=== PATIENT | female | born 1980 | race Caucasian/White ===

== ENCOUNTER 2017-10-19 15:24 | Emergency (ER) | payer OTHER ==
[2017-10-19 15:29] VITALS: BP 127/65; PULSE 92; RESP 16; TEMP 98.5
[2017-10-19] MEDS ORDERED: Acetaminophen-Codeine 300-30mg TAB PO STA (16:06)
[2017-10-19] MEDS ORDERED: CYCLOBENZAPRINE 10MG STARTER 3 TAB BTL PO STA (16:06)
--- NOTE | 2017-10-19 16:20 | ED ---
Fall HPI - General Chief Complaint: Fall Stated Complaint: fell down stairs Time Seen by Provider: 10/19/17 15:58 Source: patient, RN notes reviewed, old records reviewed Mode of arrival: ambulatory - History of Present Illness Initial Comments: this patient is a pleasant 37-year-old female chief complaint of lower tailbone. Patient reports that she was coming down the stairs from her loft. She states she slipped and fell on her buttocks down a few stairs. She complains of severe tailbone pain. She states this happened to her once before. Patient states that she has had no saddle anesthesias. Denies any numbness or tingling down the legs. She reports she did have a difficult time walking after this happened. 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 Patient denies any head injury or other injury related to the fall. - Related Data Home Medications Medication Instructions Recorded Confirmed Acetaminophen [Tylenol] 500 mg PO Q4-6H PRN 05/16/14 05/16/14 Pnv with Ca,No.72/Iron/FA 1 each PO DAILY 05/16/14 05/16/14 [ Plus Multivitamin Tab] Previous Rx's Medication Instructions Recorded Penicillin V Potassium [Pen Vee K] 500 mg PO QID #40 tab 05/16/14 Acetaminophen-Codeine 300-30mg 1 tab PO Q4H PRN 3 Days #12 tablet 10/19/17 [Tylenol w/codeine #3] Cyclobenzaprine [Flexeril] 10 mg PO TID #15 tab 10/19/17 Ibuprofen [Motrin] 600 mg PO Q6HR PRN #15 tab 10/19/17 Allergies Allergy/AdvReac Type Severity Reaction Status Date / Time No Known Allergies Allergy Verified 10/19/17 15:29 Review of Systems ROS Statement: Those systems with pertinent positive or pertinent negative responses have been documented in the HPI. ROS Other: All systems not noted in ROS Statement are negative. Past Medical History Past Medical History: No Reported History History of Any Multi-Drug Resistant Organisms: None Reported Past Surgical History: Orthopedic Surgery Past Psychological History: No Psychological Hx Reported Smoking Status: Never smoker Past Alcohol Use History: None Reported Past Drug Use History: None Reported General Exam - General Exam Comments Initial Comments: 37-year-old female. Alert and oriented. No acute distress. General: Well appearing, well nourished, in no distress. Oriented x 3, normal mood and affect . Ambulating without difficulty. Skin: Good turgor, no rash, unusual bruising or prominent lesions Hair: Normal texture and distribution. HEENT: Head: Normocephalic, atraumatic, no visible or palpable masses, depressions, or scaring. Neck: Supple, without lesions, non-tender Heart: No cardiomegaly or thrills; regular rate and rhythm, no murmur or gallop Lungs: Clear to auscultation and percussion Abdomen: Bowel sounds normal, no tenderness Back: patient has significant tenderness over the lumbar spine and coccyx and sacrum. No bruising noted. Patient is having a hard time laying down flat due to the pain. Extremities: No amputations or deformities, cyanosis, edema or varicosities, peripheral pulses intact Musculoskeletal: Normal gait and station. No misalignment, asymmetry, crepitation, defects, tenderness, masses, effusions, decreased range of motion, instability, atrophy or abnormal strength or tone in the head, neck, spine, ribs , pelvis or extremities. Neurologic: CN 2-12 normal. Sensation to pain, touch, and proprioception normal. DTRs normal in upper and lower extremities. No pathologic reflexes. Psychiatric: Oriented X3, intact recent and remote memory, judgment and insight , normal mood and affect. Limitations: no limitations Course Vital Signs 10/19/17 10/19/17 15:26 17:26 Temperature 98.5 F 98.5 F Pulse Rate 92 92 Respiratory 16 16 Rate Blood Pressure 127/65 127/65 O2 Sat by Pulse 99 99 Oximetry Medical Decision Making - Medical Decision Making physical 37 showed [employer] chief complaint of tailbone pain after falling down the stairs. She has no bruising noted but significant tenderness palpation over the lower spine. X-rays were obtained. There is no evidence of any acute fractures or dislocation. Patient did exhibit significant pain to palpation. Was given pain medication while emergency department. She does feel somewhat better. At this time is that she may need to purchase a donut pillow to take off the pressure from her tailbone. Discussed that she should rest, apply ice and later heat. Patient understands treatment plan will comply. Return parameters were discussed. 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 No vertebral compression or malalignment. No displaced or angulated tailbone fracture. Disposition Clinical Impression: Fall, Lumbar back pain, Coccyx pain Disposition: HOME SELF-CARE Condition: Good Instructions: Coccyx Injury (ED) Additional Instructions: Patient has follow-up with primary care provider. Recommended using a donut pillow to relieve pressure from the tailbone. Return to the emergency department if any alarming signs or symptoms occur. Prescriptions: Acetaminophen-Codeine 300-30mg [Tylenol w/codeine #3] 1 tab PO Q4H PRN 3 Days # 12 tablet PRN Reason: Pain Cyclobenzaprine [Flexeril] 10 mg PO TID #15 tab Ibuprofen [Motrin] 600 mg PO Q6HR PRN #15 tab PRN Reason: Pain Is patient prescribed a controlled substance at d/c from ED?: No If prescribed controlled substance>3 days was MAPS reviewed?: No When asked, does pt state using other controlled substances?: No Referrals: None,Stated [Primary Care Provider] - 1-2 days Pia Alan MD [STAFF PHYSICIAN] - 1-2 days Time of Disposition: 16:57
--- NOTE | 2017-10-19 16:51 | XR ---
EXAMINATION TYPE: XR lumbar spine 2 or 3V, XR sacrum coccyx 3 views DATE OF EXAM: 10/19/2017 COMPARISON: NONE HISTORY: 37-year-old female low back pain after fall downstairs FINDINGS: Lumbar spine: 5 lumbar type vertebral bodies. There is a limbus vertebra of L4. Vertebral body heights are preserve d and alignment is maintained. Sacrum and coccyx: SI joints appear symmetric and intact though there is some subarticular sclerosis noted on both sides . Smooth delineation to the arcuate lines of the sacrum. No displaced or angulated sacral or coccygea l fracture seen. IMPRESSION: 1. 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 No vertebral compression collapse or malalignment. 2. Sacrum and coccyx: No displaced or angulated tailbone fracture.
== END 2017-10-19 17:21 | disposition home or self-care (01) ==
LOC: EC 15:24
DX: M54.5 Low back pain (principal); W10.9XXA Fall (on) (from) unspecified stairs and steps, initial encounter
CPT/HCPCS: 72100; 72220; 99284

== ENCOUNTER 2020-02-24 16:03 | Emergency (ER) | payer OTHER ==
[2020-02-24 16:08] VITALS: RESP 18
[2020-02-24] MEDS ORDERED: LORazepam 2 MG/ML INJ IV STA (16:27)
[2020-02-24] MEDS ORDERED: ONDANSETRON 4 MG/2 ML VIAL IVP STA (16:27)
[2020-02-24] MEDS ORDERED: KETOROLAC 15 MG/ML 1 ML VIAL IVP STA (16:27)
[2020-02-24] MEDS ORDERED: diphenhydrAMINE 50 MG/ML 1 ML VIAL IVP STA (16:27)
[2020-02-24] MEDS ORDERED: SODIUM CHLORIDE 0.9% 1,000 ML IV STA (16:27)
--- NOTE | 2020-02-24 16:30 | ED ---
General Adult HPI - General Chief complaint: Syncope Stated complaint: Near Syncope, Headache, Numb Fingers Time Seen by Provider: 02/24/20 16:13 Source: patient Mode of arrival: ambulatory Limitations: no limitations - History of Present Illness Initial comments: Dictation was produced using [employer] dictation software. please excuse any grammatical, word or spelling errors. This patient was cared for during a federal and state declared state of emergency secondary to Covid 19 Chief Complaint: 39-year-old female with past medical history of appendectomy presents with lightheadedness, headache and extremity paresthesias. History of Present Illness: 39-year-old female she presents today with headache. Patient has history of tension headaches. She states her headaches are similar to her usual headaches patient usually sees a chiropractor and her symptoms always end up improving. Patient states for the last couple days she's been having lightheadedness. She has been feeling anxious. She has a history of anxiety. Patient has had Xanax several months ago. She's been feeling, stress recently. Patient states that he tried marijuana gun he is several days ago and felt very ill from it. She states that today her symptoms remind her of when she took marijuana Shane. The ROS documented in this emergency department record has been reviewed and confirmed by me. Those systems with pertinent positive or negative responses have been documented in the HPI. All other systems are other negative and/or noncontributory. PHYSICAL EXAM: General Impression: Alert and oriented x3, not in acute distress, tremors HEENT: Normocephalic atraumatic, extra-ocular movements intact, pupils equal and reactive to light bilaterally, mucous membranes moist. Cardiovascular: Heart regular rate and rhythm Chest: Able to complete full sentences, no retractions, no tachypnea Abdomen: abdomen soft, non-tender, non-distended, no organomegaly Musculoskeletal: Pulses present and equal in all extremities, no peripheral edema Motor: no focal deficits noted Neurological: CN II-XII grossly intact, no focal motor or sensory deficits noted Skin: Intact with no visualized rashes Psych: Normal affect and mood ED course: 31-year-old female presents with headache, lightheadedness and presyncope signs upon arrival are within acceptable limits. Laboratory evaluation obtained. CBC, metabolic panel and urine hCG is obtained. There is slight gap acidosis. Patient states she has not been eating very well recently. This is likely secondary to some mild starvation acidosis. Patient otherwise appears well and feels much better after anxiolytics and headache down fluids. She is advised to follow-up with primary care physician. Patient clear for discharge. EKG interpretation: Ventricular rate 80, normal sinus rhythm,. Interval 150, QRS 94, QTc 442. No NM prolongation, no QTC prolongation, no ST or T-wave changes noted. Overall, this EKG is unremarkable - Related Data Home Medications Medication Instructions Recorded Confirmed Acetaminophen [Tylenol] 500 mg PO Q4-6H PRN 05/16/14 05/16/14 Pnv with Ca,No.72/Iron/FA 1 each PO DAILY 05/16/14 05/16/14 [ Plus Multivitamin Tab] Previous Rx's Medication Instructions Recorded Penicillin V Potassium [Pen Vee K] 500 mg PO QID #40 tab 05/16/14 Acetaminophen-Codeine 300-30mg 1 tab PO Q4H PRN 3 Days #12 tablet 10/19/17 [Tylenol w/codeine #3] Cyclobenzaprine [Flexeril] 10 mg PO TID #15 tab 10/19/17 Ibuprofen [Motrin] 600 mg PO Q6HR PRN #15 tab 10/19/17 Allergies Allergy/AdvReac Type Severity Reaction Status Date / Time No Known Allergies Allergy Verified 02/24/20 16:08 Review of Systems ROS Statement: Those systems with pertinent positive or pertinent negative responses have been documented in the HPI. ROS Other: All systems not noted in ROS Statement are negative. Past Medical History Past Medical History: No Reported History History of Any Multi-Drug Resistant Organisms: None Reported Past Surgical History: Appendectomy, Orthopedic Surgery Past Psychological History: No Psychological Hx Reported Smoking Status: Never smoker Past Alcohol Use History: Occasional Past Drug Use History: None Reported General Exam Limitations: no limitations Course Vital Signs 02/24/20 16:05 Temperature 98.5 F Pulse Rate 84 Respiratory 18 Rate Blood Pressure 130/67 O2 Sat by Pulse 98 Oximetry Medical Decision Making - Lab Data Result diagrams: 02/24/20 16:37 02/24/20 16:37 Lab Results 02/24/20 02/24/20 02/24/20 Range/Units 16:37 16:37 16:37 WBC 9.4 (3.8-10.6) k/uL RBC 5.06 (3.80-5.40) m/uL Hgb 14.3 (11.4-16.0) gm/dL Hct 44.2 (34.0-46.0) % MCV 87.3 (80.0-100.0) fL MCH 28.2 (25.0-35.0) pg MCHC 32.3 (31.0-37.0) g/dL RDW 12.1 (11.5-15.5) % Plt Count 332 (150-450) k/uL Neutrophils % 68 % Lymphocytes % 25 % Monocytes % 3 % Eosinophils % 2 % Basophils % 0 % Neutrophils # 6.4 (1.3-7.7) k/uL Lymphocytes # 2.4 (1.0-4.8) k/uL Monocytes # 0.3 (0-1.0) k/uL Eosinophils # 0.2 (0-0.7) k/uL Basophils # 0.0 (0-0.2) k/uL Sodium 138 (137-145) mmol/L Potassium 3.7 (3.5-5.1) mmol/L Chloride 106 (98-107) mmol/L Carbon Dioxide 19 L (22-30) mmol/L Anion Gap 13 mmol/L BUN 15 (7-17) mg/dL Creatinine 0.78 (0.52-1.04) mg/dL Est GFR (CKD-EPI)AfAm >90 (>60 ml/min/1.73 sqM) Est GFR (CKD-EPI)NonAf >90 (>60 ml/min/1.73 sqM) Glucose 100 H (74-99) mg/dL Calcium 9.8 (8.4-10.2) mg/dL Urine HCG, Qual Not Detected (Not Detectd) Disposition Clinical Impression: Pre-syncope Disposition: HOME SELF-CARE Condition: Good Instructions (If sedation given, give patient instructions): Near Syncope (ED) Is patient prescribed a controlled substance at d/c from ED?: No Referrals: None,Stated [Primary Care Provider] - 1-2 days Time of Disposition: 17:41
[2020-02-24 16:55] LABS: Basophils % (A) 0 %; Eosinophils # (A) 0.2 k/uL (0-0.7); Eosinophils % (A) 2 %; HCT 44.2 % (34.0-46.0); HGB 14.3 gm/dL (11.4-16.0); Lymphocytes # (A) 2.4 k/uL (1.0-4.8); Lymphocytes % (A) 25 %; MCH 28.2 pg (25.0-35.0); MCHC 32.3 g/dL (31.0-37.0); MCV 87.3 fL (80.0-100.0); Mean Platelet Volume 7.1; Monocytes # (A) 0.3 k/uL (0-1.0); Monocytes % (A) 3 %; Neutrophils # (A) 6.4 k/uL (1.3-7.7); Neutrophils % (A) 68 %; Platelet Count 332 k/uL (150-450); RBC 5.06 m/uL (3.80-5.40); RDW 12.1 % (11.5-15.5); WBC 9.4 k/uL (3.8-10.6)
[2020-02-24 17:05] LABS: African American GFR (CKD) >90 (>60 ml/min/1.73 sqM); Anion Gap 13 mmol/L; Blood Urea Nitrogen 15 mg/dL (7-17); Calcium 9.8 mg/dL (8.4-10.2); Carbon Dioxide 19 mmol/L (22-30); Chloride 106 mmol/L (98-107); Glucose 100 mg/dL (74-99); Non-African American GFR(CKD) >90 (>60 ml/min/1.73 sqM); Potassium 3.7 mmol/L (3.5-5.1); Sodium 138 mmol/L (137-145)
[2020-02-24 18:40] VITALS: BP 97/51; PULSE 88; TEMP 96.7
== END 2020-02-24 18:42 | disposition home or self-care (01) ==
LOC: EC 16:03
DX: R42 Dizziness and giddiness (principal); R51 Headache; R20.2 Paresthesia of skin
CPT/HCPCS: 36415; 93005; 80048; 85025; 81025; 99284; 96374; 96375 ×3; 96361; J2060; J1200; J2405; J1885

== ENCOUNTER 2020-05-14 10:15 | Emergency (ER) | payer OTHER ==
[2020-05-14 10:21] VITALS: RESP 18
[2020-05-14] MEDS ORDERED: SODIUM CHLORIDE 0.9% 1,000 ML IV STA ×2 (11:01)
--- NOTE | 2020-05-14 11:06 | ED ---
Chest Pain HPI - General Chief Complaint: Chest Pain Stated Complaint: Female /Chest pain Time Seen by Provider: 05/14/20 10:31 Source: patient, RN notes reviewed, old records reviewed Mode of arrival: ambulatory Limitations: no limitations - History of Present Illness Initial Comments: 39-year-old female presents today for CC of chest pain and heaviness. Patient has had palpitations starting this morning. She reports that early in the morning she woke up to the bathroom and had severe vaginal bleeding with clots. She reports that she's on her menstrual cycle and she does have some nasal heavy periods but never this bad. Patient states that she also has a history of anxiety. She reports the palpitations and numbness and tingling down her arms that she thought to be related to anxiety versus take her medication of magnesium to help with his prior to arrival. She states that she has no chance of . She denies any other complaints - Related Data Home Medications Medication Instructions Recorded Confirmed Iron 18 mg PO DAILY PRN 05/14/20 05/14/20 Magnesium Oxide [Mag-Ox] 250 mg PO DAILY 05/14/20 05/14/20 Multivitamins, Thera [Multivitamin 1 tab PO DAILY 05/14/20 05/14/20 (formulary)] Allergies Allergy/AdvReac Type Severity Reaction Status Date / Time No Known Allergies Allergy Verified 05/14/20 11:43 Review of Systems ROS Statement: Those systems with pertinent positive or pertinent negative responses have been documented in the HPI. ROS Other: All systems not noted in ROS Statement are negative. EKG Findings - EKG Comments: EKG Findings:: EKG performed at 1041 shows normal sinus rhythm with sinus arrhythmia. Normal EKG. Ventricular rate of 77 bpm. Was 162 ms. QRS ration is 90 ms. QT QTc is 3-4/434 ms. Past Medical History Past Medical History: No Reported History History of Any Multi-Drug Resistant Organisms: None Reported Past Surgical History: Appendectomy, Orthopedic Surgery Past Psychological History: No Psychological Hx Reported Smoking Status: Never smoker Past Alcohol Use History: Occasional Past Drug Use History: None Reported General Exam - General Exam Comments Initial Comments: 39-year-old female. Alert and oriented. No distress. Limitations: no limitations General appearance: alert, in no apparent distress Head exam: Present: atraumatic, normocephalic, normal inspection Eye exam: Present: normal appearance ENT exam: Present: normal exam, mucous membranes moist Neck exam: Present: normal inspection. Absent: tenderness, meningismus, lymphadenopathy Respiratory exam: Present: normal lung sounds bilaterally. Absent: respiratory distress, wheezes, rales, rhonchi, stridor Cardiovascular Exam: Present: regular rate, normal rhythm, normal heart sounds. Absent: systolic murmur, diastolic murmur, rubs, gallop, clicks GI/Abdominal exam: Present: soft, normal bowel sounds. Absent: distended, tenderness, guarding, rebound, rigid Extremities exam: Present: normal inspection, full ROM, normal capillary refill. Absent: tenderness, pedal edema, joint swelling, calf tenderness Back exam: Present: normal inspection Neurological exam: Present: alert, oriented X3, CN II-XII intact Psychiatric exam: Present: normal affect, normal mood Skin exam: Present: warm, dry, intact, normal color. Absent: rash Course Vital Signs 05/14/20 05/14/20 05/14/20 10:18 10:40 11:30 Temperature 98.4 F Pulse Rate 84 81 75 Respiratory 18 18 Rate Blood Pressure 126/79 104/71 O2 Sat by Pulse 100 98 98 Oximetry 05/14/20 13:02 Temperature 97.7 F Pulse Rate 74 Respiratory 18 Rate Blood Pressure 98/62 O2 Sat by Pulse 99 Oximetry Chest Pain MDM - MDM 39-year-old female presents today with concerns for palpitations and anxiety. She reports that she felt lightheaded and symptoms started after she had some heavy vaginal bleeding today. She reports that sounds diminished. She denies any abdominal pain or tenderness. Return to emergency department she denied any chest pain. Patient's related to anxiety attacks. Patient is agreeing on reevaluation. Patient was given IV fluids and had a cardiac workup including a negative d-dimer and troponin. She is reevaluated states she is feeling somewhat improved besides anxiety. She states stable for discharge home and follow-up with PCP in regards to ambulate medications. Disposition Clinical Impression: Heavy menstrual bleeding, Anxiety, Atypical chest pain Disposition: HOME SELF-CARE Condition: Good Instructions (If sedation given, give patient instructions): Chest Pain (ED) Additional Instructions: Please follow up with family doctor if symptoms have not improved over the next two days. Please return to the emergency room if your symptoms increase or worsen or for any other concerns. Is patient prescribed a controlled substance at d/c from ED?: No Referrals: None,Stated [Primary Care Provider] - 1-2 days Amber Palumbo MD [REFERRING] - 1-2 days Time of Disposition: 13:03
[2020-05-14 11:18] LABS: Basophils % (A) 0 %; Eosinophils # (A) 0.1 k/uL (0-0.7); Eosinophils % (A) 1 %; HCT 48.1 % (34.0-46.0); HGB 15.5 gm/dL (11.4-16.0); Lymphocytes # (A) 1.2 k/uL (1.0-4.8); Lymphocytes % (A) 16 %; MCH 28.2 pg (25.0-35.0); MCHC 32.3 g/dL (31.0-37.0); MCV 87.5 fL (80.0-100.0); Mean Platelet Volume 7.5; Monocytes # (A) 0.2 k/uL (0-1.0); Monocytes % (A) 3 %; Neutrophils # (A) 6.1 k/uL (1.3-7.7); Neutrophils % (A) 79 %; Platelet Count 329 k/uL (150-450); RDW 12.6 % (11.5-15.5); WBC 7.7 k/uL (3.8-10.6)
[2020-05-14 11:35] LABS: Appearance,Urine Clear (Clear); Bilirubin,Urine Negative (Negative); Blood,Urine Large (Negative); Color,Urine Colorless; Glucose,Urine (UA) Negative (Negative); Ketones,Urine Negative (Negative); Leukocyte Esterase,Urine Negative (Negative); Nitrite,Urine Negative (Negative); Protein,Urine Negative (Negative); RBC,Urine 2 /hpf (0-5); Specific Gravity,Urine 1.002 (1.001-1.035); Squamous Epithelial Cell,Urine 1 /hpf (0-4); Urobilinogen,Urine <2.0 mg/dL (<2.0); WBC,Urine 1 /hpf (0-5)
[2020-05-14 11:45] LABS: ALT 18 U/L (4-34); AST 23 U/L (14-36); African American GFR (CKD) >90 (>60 ml/min/1.73 sqM); Albumin 4.3 g/dL (3.5-5.0); Alkaline Phosphatase 66 U/L (38-126); Anion Gap 7 mmol/L; Blood Urea Nitrogen 12 mg/dL (7-17); Calcium 9.5 mg/dL (8.4-10.2); Carbon Dioxide 21 mmol/L (22-30); Chloride 112 mmol/L (98-107); Glucose 99 mg/dL (74-99); Lipase 106 U/L (23-300); Magnesium 2.2 mg/dL (1.6-2.3); Non-African American GFR(CKD) >90 (>60 ml/min/1.73 sqM); Sodium 140 mmol/L (137-145); Total Bilirubin 0.5 mg/dL (0.2-1.3); Total Protein 7.5 g/dL (6.3-8.2)
[2020-05-14 11:51] LABS: INR 0.9 (<1.2); Partial Thromboplastin Time 23.8 sec (22.0-30.0); Prothrombin Time 9.8 sec (9.0-12.0)
--- NOTE | 2020-05-14 12:27 | XR ---
EXAMINATION TYPE: XR chest 2V DATE OF EXAM: 05/14/2020 COMPARISON: NONE HISTORY: Chest pain, heart palpitations TECHNIQUE: Frontal and lateral views of the chest are obtained. FINDINGS: There is no focal air space opacity, pleural effusion, or pneumothorax seen. The cardiac silhouette size is within normal limits. The osseous structures are intact. There are overlying car diac leads. IMPRESSION: No acute cardiopulmonary process.
[2020-05-14] MEDS ORDERED: LORazepam 1 MG TAB PO STA (13:02)
[2020-05-14 13:03] VITALS: TEMP 97.7
[2020-05-14 13:27] VITALS: BP 118/75; PULSE 80
== END 2020-05-14 13:32 | disposition home or self-care (01) ==
LOC: EC 10:15
DX: R07.89 Other chest pain (principal); F41.9 Anxiety disorder, unspecified; N93.9 Abnormal uterine and vaginal bleeding, unspecified; R42 Dizziness and giddiness
CPT/HCPCS: 36415; 71046; 80053; 81001; 81025; 83690; 83735; 83880; 84484; 85025; 85379; 85610; 85730; 93005; 96360; 96361; 99285